=== PATIENT | male | born 1980 | race Caucasian/White ===

== ENCOUNTER 2020-05-27 09:25 | Emergency (ER) | payer BC ==
[2020-05-27 09:30] VITALS: BP 154/98; RESP 16; TEMP 98.4
--- NOTE | 2020-05-27 10:06 | XR ---
EXAMINATION TYPE: XR chest 1V DATE OF EXAM: 05/27/2020 COMPARISON: NONE HISTORY: Cough, Covid exposure TECHNIQUE: Single frontal view of the chest is obtained. FINDINGS: There is no focal air space opacity, pleural effusion, or pneumothorax seen. The cardiac silhouette size is within normal limits. The osseous structures are intact. IMPRESSION: No acute process.
--- NOTE | 2020-05-27 10:08 | ED ---
General Adult HPI - General Chief complaint: Upper Respiratory Infection Stated complaint: cough Time Seen by Provider: 05/27/20 09:36 Source: patient, RN notes reviewed, old records reviewed Mode of arrival: ambulatory Limitations: no limitations - History of Present Illness Initial comments: 39-year-old male patient presents to chief complaint cough, rhinitis, congestion and on for the last 2 days. Patient with history of asthma. Denies any fevers. States that he feels that he may have a very mild shortness of breath but it is not severe. Denies any chest pain. Denies any other acute complaints. Patient states that he believes that he just has a cold however multiple people at his job of tested positive for covid so his boss is making him to the tests before in the back to work. Systemic: Pt denies fatigue, fever/chills, rash. Pt denies weakness, night sweats, weight loss. Neuro: Pt denies headache, visual disturbances, syncope or pre-syncope. HEENT: Pt denies ocular discharge or irritation, otalgia, rhinorrhea, pharyngitis or notable lymphadenopathy. Cardiopulmonary: Pt denies chest pain, heart palpitations, dyspnea on exertion. Abdominal/GI: Pt denies abdominal pain, n/v/d. : Pt denies dysuria, burning w/ urination, frequency/urgency. Denies new onset urinary or bowel incontinence. MSK: Pt denies myalgia, loss of strength or function in extremities. Neuro: Pt denies new onset weakness, paresthesias. - Related Data Allergies Allergy/AdvReac Type Severity Reaction Status Date / Time No Known Allergies Allergy Verified 05/27/20 09:27 Review of Systems ROS Statement: Those systems with pertinent positive or pertinent negative responses have been documented in the HPI. ROS Other: All systems not noted in ROS Statement are negative. Past Medical History Past Medical History: No Reported History History of Any Multi-Drug Resistant Organisms: None Reported Past Surgical History: No Surgical Hx Reported Smoking Status: Never smoker Past Alcohol Use History: None Reported Past Drug Use History: None Reported General Exam - General Exam Comments Initial Comments: Systemic: Pt denies fatigue, fever/chills, rash. Pt denies weakness, night sweats, weight loss. Neuro: Pt denies headache, visual disturbances, syncope or pre-syncope. HEENT: Pt denies ocular discharge or irritation, otalgia, rhinorrhea, pharyngitis or notable lymphadenopathy. Cardiopulmonary: Pt denies chest pain, SOB, heart palpitations, dyspnea on exertion. Abdominal/GI: Pt denies abdominal pain, n/v/d. : Pt denies dysuria, burning w/ urination, frequency/urgency. Denies new onset urinary or bowel incontinence. MSK: Pt denies myalgia, loss of strength or function in extremities. Neuro: Pt denies new onset weakness, paresthesias. Limitations: no limitations Course Vital Signs 05/27/20 09:27 Temperature 98.4 F Pulse Rate 110 H Respiratory 16 Rate Blood Pressure 154/98 O2 Sat by Pulse 99 Oximetry Medical Decision Making - Medical Decision Making 39-year-old male patient received evaluation of covert exposure cough, rhinitis. Patient vital signs are stable, afebrile. Physical exam did not display acute pathology. Chest x-ray revealed no acute process. Patient was tested for: Advised to self 14. Patient proceeded as a history of asthma and states that he has an inhaler at home night and refills. Patient follow up with primary care provider provider and return if any worsening symptoms. Case discussed with Dr. Arriola. Disposition Clinical Impression: Cough, Exposure to COVID-19 virus Disposition: HOME SELF-CARE Condition: Stable Instructions (If sedation given, give patient instructions): Acute Cough (ED) Additional Instructions: Follow-up with primary care provider tomorrow. Self quarantine until covid results. Return to ER if any worsening symptoms. Is patient prescribed a controlled substance at d/c from ED?: No Referrals: None,Stated [Primary Care Provider] - 1-2 days Kboe Austin [STAFF PHYSICIAN] - 1-2 days
[2020-05-27 10:30] VITALS: PULSE 96
== END 2020-05-27 10:31 | disposition home or self-care (01) ==
LOC: EC 09:25
DX: R05 Cough (principal); R09.89 Other specified symptoms and signs involving the circulatory and respiratory systems; J31.0 Chronic rhinitis; J45.909 Unspecified asthma, uncomplicated; Z79.51 Long term (current) use of inhaled steroids; Z20.828 Contact with and (suspected) exposure to other viral communicable diseases
CPT/HCPCS: 71045; 99284; U0003